=== PATIENT | female | born 1970 | race Native Hawaiian/Other Pacific Islander ===

== ENCOUNTER 2023-12-18 13:15 | Outpatient (RCR) | payer OTHER, SELFPAY | END 2024-04-16 23:59 | disposition home or self-care (01) | PROVIDERS: PCP Family Medicine | DX: S62.617A Displaced fracture of proximal phalanx of left little finger, initial encounter for closed fracture (principal); Z74.09 Other reduced mobility; R52 Pain, unspecified; R60.9 Edema, unspecified; R53.1 Weakness; Z51.89 Encounter for other specified aftercare | CPT/HCPCS: 97110; 97165; L3933; X5282 ==

== ENCOUNTER 2024-06-02 11:15 | Outpatient (RCR) | payer BC, OTHER, SELFPAY | END 2024-06-02 11:34 | disposition home or self-care (01) | PROVIDERS: PCP Family Medicine; Visit Provider Family Medicine | DX: M25.561 Pain in right knee (principal); M25.562 Pain in left knee; M25.662 Stiffness of left knee, not elsewhere classified; Z51.89 Encounter for other specified aftercare | CPT/HCPCS: 97110; 97112; 97161 ==